=== PATIENT | female | born 1950 | race Caucasian/White ===

== ENCOUNTER 2017-05-10 11:06 | Observation (INO) | payer MEDICARE ==
[2017-05-10] MEDS ORDERED: NITROGLYCERIN OINT 1 INCH/GM PACKET TOPICAL STA (11:46)
[2017-05-10] MEDS ORDERED: ASPIRIN 81 MG PO STA (11:46)
--- NOTE | 2017-05-10 11:49 | ED ---
General Adult HPI - General Chief complaint: Chest Pain Stated complaint: CHEST PAIN Time Seen by Provider: 05/10/17 11:06 Source: EMS, RN notes reviewed Mode of arrival: EMS Limitations: no limitations - History of Present Illness Initial comments: This is a 66-year-old female who presents emergency Department complaining of chest pain at work for about 10 minutes and then she became significantly short of breath. Patient states she also was dizzy when she had chest pain. Patient states it was a pressure or heaviness sensation. Patient states she is not diabetic does not smoke. Patient states she has high blood pressure high cholesterol. Patient states she has some distant family members who have heart disease. Patient states currently she is chest pain-free. Patient denies any recent fever chills or cough. Patient denies any near syncopal episode. Patient denies abdominal pain patient denies any nausea vomiting diarrhea per patient denies any diaphoresis. Patient denies any radiation of the pain. Patient denies any significant leg swelling or calf tenderness. - Related Data Home Medications Medication Instructions Recorded Confirmed Aspirin 81 mg PO HS 05/10/17 05/10/17 Biotin 5 mg PO DAILY 05/10/17 05/10/17 Cyanocobalamin (Vitamin B-12) 1,000 mcg PO DAILY 05/10/17 05/10/17 [Vitamin B-12] Levothyroxine Sodium [Synthroid] 25 mcg PO DAILY 05/10/17 05/10/17 Losartan [Cozaar] 25 mg PO BID 05/10/17 05/10/17 Multivitamins, Thera [Multivitamin 1 tab PO DAILY 05/10/17 05/10/17 (formulary)] [place]-3 Fatty Acids [[place]-3] 1,000 mg PO DAILY 05/10/17 05/10/17 Omeprazole [PriLOSEC] 20 mg PO DAILY 05/10/17 05/10/17 Simvastatin [Zocor] 20 mg PO HS 05/10/17 05/10/17 Allergies Allergy/AdvReac Type Severity Reaction Status Date / Time sulfasalazine Allergy Unknown Verified 05/10/17 11:28 [From Azulfidine] Review of Systems ROS Statement: Those systems with pertinent positive or pertinent negative responses have been documented in the HPI. ROS Other: All systems not noted in ROS Statement are negative. Past Medical History Past Medical History: Hyperlipidemia, Hypertension, Thyroid Disorder Additional Past Medical History / Comment(s): crohns History of Any Multi-Drug Resistant Organisms: None Reported Past Surgical History: Adenoidectomy, Appendectomy, Bowel Resection, Cholecystectomy, Hysterectomy, Tonsillectomy Past Psychological History: No Psychological Hx Reported Smoking Status: Never smoker Past Alcohol Use History: None Reported Past Drug Use History: None Reported General Exam - General Exam Comments Initial Comments: GENERAL: Patient is well-developed and well-nourished. Patient is nontoxic and well- hydrated and is in mild distress. ENT: Neck is soft and supple. No significant lymphadenopathy is noted. Oropharynx is clear. Moist mucous membranes. Neck has full range of motion without eliciting any pain. EYES: The sclera were anicteric and conjunctiva were pink and moist. Extraocular movements were intact and pupils were equal round and reactive to light. Eyelids were unremarkable. PULMONARY: Unlabored respirations. Good breath sounds bilaterally. No audible rales rhonchi or wheezing was noted. CARDIOVASCULAR: There is a regular rate and rhythm without any murmurs gallops or rubs. ABDOMEN: Soft and nontender with normal bowel sounds. No palpable organomegaly was noted. There is no palpable pulsatile mass. SKIN: Skin is clear with no lesions or rashes and otherwise unremarkable. NEUROLOGIC: Patient is alert and oriented x3. Cranial nerves II through XII are grossly intact. Motor and sensory are also intact. Normal speech, volume and content. Symmetrical smile. MUSCULOSKELETAL: Normal extremities with adequate strength and full range of motion. LYMPHATICS: No significant lymphadenopathy is noted PSYCHIATRIC: Normal psychiatric evaluation. Normal interpersonal interactions appears functionally intact in deals appropriately with others. No signs of depression. No signs of anxiety. Limitations: no limitations Course Vital Signs 05/10/17 05/10/17 11:10 11:32 Temperature 97.9 F Pulse Rate 78 Respiratory 16 18 Rate Blood Pressure 170/77 O2 Sat by Pulse 97 Oximetry Medical Decision Making - Medical Decision Making EKG shows normal sinus rhythm at 67 bpm AR interval is 140 QRS is 80 QT intervals 416 QTC is 439. Patient's EKG shows no ST segment elevation or depression or T wave abnormalities are noted. Chest x-ray shows no acute abnormality. Patient was chest pain-free throughout her emergency stay however because of her clinical picture and risk factors started the patient on heparin for unstable angina. I spoke with because he agreed to admit the patient admitted the patient wrote admitting orders. - Lab Data Result diagrams: 05/10/17 11:20 05/10/17 11:20 Lab Results 05/10/17 05/10/17 05/10/17 Range/Units 11:20 11:20 11:20 WBC 7.2 (3.8-10.6) k/uL RBC 5.05 (3.80-5.40) m/uL Hgb 14.3 (11.4-16.0) gm/dL Hct 42.1 (34.0-46.0) % MCV 83.4 (80.0-100.0) fL MCH 28.4 (25.0-35.0) pg MCHC 34.0 (31.0-37.0) g/dL RDW 13.1 (11.5-15.5) % Plt Count 220 (150-450) k/uL Neutrophils % 44 % Lymphocytes % 45 % Monocytes % 7 % Eosinophils % 2 % Basophils % 1 % Neutrophils # 3.2 (1.3-7.7) k/uL Lymphocytes # 3.2 (1.0-4.8) k/uL Monocytes # 0.5 (0-1.0) k/uL Eosinophils # 0.2 (0-0.7) k/uL Basophils # 0.0 (0-0.2) k/uL PT (9.0-12.0) sec INR (<1.2) APTT (22.0-30.0) sec Sodium 143 (137-145) mmol/L Potassium 4.4 (3.5-5.1) mmol/L Chloride 105 (98-107) mmol/L Carbon Dioxide 25 (22-30) mmol/L Anion Gap 13 mmol/L BUN 19 H (7-17) mg/dL Creatinine 0.78 (0.52-1.04) mg/dL Est GFR (CKD-EPI)AfAm >90 (>60 ml/min/1.73 sqM) Est GFR (CKD-EPI)NonAf 80 (>60 ml/min/1.73 sqM) Glucose 122 H (74-99) mg/dL Calcium 9.9 (8.4-10.2) mg/dL Magnesium 2.0 (1.6-2.3) mg/dL Total Bilirubin 0.4 (0.2-1.3) mg/dL AST 38 H (14-36) U/L ALT 59 H (9-52) U/L Alkaline Phosphatase 86 (38-126) U/L Total Creatine Kinase 110 (30-135) U/L CK-MB (CK-2) 1.9 (0.0-2.4) ng/mL CK-MB (CK-2) Rel Index 1.7 Troponin I <0.012 (0.000-0.034) ng/mL NT-Pro-B Natriuret Pep pg/mL Total Protein 7.1 (6.3-8.2) g/dL Albumin 4.3 (3.5-5.0) g/dL 05/10/17 05/10/17 Range/Units 11:20 11:20 WBC (3.8-10.6) k/uL RBC (3.80-5.40) m/uL Hgb (11.4-16.0) gm/dL Hct (34.0-46.0) % MCV (80.0-100.0) fL MCH (25.0-35.0) pg MCHC (31.0-37.0) g/dL RDW (11.5-15.5) % Plt Count (150-450) k/uL Neutrophils % % Lymphocytes % % Monocytes % % Eosinophils % % Basophils % % Neutrophils # (1.3-7.7) k/uL Lymphocytes # (1.0-4.8) k/uL Monocytes # (0-1.0) k/uL Eosinophils # (0-0.7) k/uL Basophils # (0-0.2) k/uL PT 9.7 (9.0-12.0) sec INR 1.0 (<1.2) APTT 22.1 (22.0-30.0) sec Sodium (137-145) mmol/L Potassium (3.5-5.1) mmol/L Chloride (98-107) mmol/L Carbon Dioxide (22-30) mmol/L Anion Gap mmol/L BUN (7-17) mg/dL Creatinine (0.52-1.04) mg/dL Est GFR (CKD-EPI)AfAm (>60 ml/min/1.73 sqM) Est GFR (CKD-EPI)NonAf (>60 ml/min/1.73 sqM) Glucose (74-99) mg/dL Calcium (8.4-10.2) mg/dL Magnesium (1.6-2.3) mg/dL Total Bilirubin (0.2-1.3) mg/dL AST (14-36) U/L ALT (9-52) U/L Alkaline Phosphatase (38-126) U/L Total Creatine Kinase (30-135) U/L CK-MB (CK-2) (0.0-2.4) ng/mL CK-MB (CK-2) Rel Index Troponin I (0.000-0.034) ng/mL NT-Pro-B Natriuret Pep 42 pg/mL Total Protein (6.3-8.2) g/dL Albumin (3.5-5.0) g/dL Critical Care Time Critical Care Time: Yes Total Critical Care Time: 35 Disposition Clinical Impression: Unstable angina pectoris Disposition: ADMITTED IP TO THIS HOSP Referrals: Vivek Simpson MD [Primary Care Provider] - 1-2 days Time of Disposition: 13:21
[2017-05-10 12:02] LABS: Basophils % (A) 1 %; Eosinophils # (A) 0.2 k/uL (0-0.7); Eosinophils % (A) 2 %; HCT 42.1 % (34.0-46.0); HGB 14.3 gm/dL (11.4-16.0); Lymphocytes # (A) 3.2 k/uL (1.0-4.8); Lymphocytes % (A) 45 %; MCH 28.4 pg (25.0-35.0); MCV 83.4 fL (80.0-100.0); Mean Platelet Volume 7.8; Monocytes # (A) 0.5 k/uL (0-1.0); Monocytes % (A) 7 %; Neutrophils # (A) 3.2 k/uL (1.3-7.7); Neutrophils % (A) 44 %; Platelet Count 220 k/uL (150-450); RBC 5.05 m/uL (3.80-5.40); RDW 13.1 % (11.5-15.5); WBC 7.2 k/uL (3.8-10.6)
[2017-05-10 12:09] LABS: Prothrombin Time 9.7 sec (9.0-12.0)
--- NOTE | 2017-05-10 12:11 | XR ---
EXAMINATION TYPE: XR chest 2V DATE OF EXAM: 05/10/2017 COMPARISON: NONE HISTORY: Shortness of breath TECHNIQUE: Frontal and lateral views of the chest are obtained. FINDINGS: Scattered senescent parenchymal changes noted. Hyperinflation compatible with COPD. No evidence for infiltrate. No evidence for atelectasis. Heart size is stable. Mediastinal structures are stable and grossly unremarkable. No evidence for hilar prominence. Degenerative changes dorsal spine. IMPRESSION: 1. No evidence for acute pulmonary disease.
[2017-05-10 12:12] LABS: ALT 59 U/L (9-52); AST 38 U/L (14-36); Albumin 4.3 g/dL (3.5-5.0); Alkaline Phosphatase 86 U/L (38-126); Anion Gap 13 mmol/L; Blood Urea Nitrogen 19 mg/dL (7-17); Calcium 9.9 mg/dL (8.4-10.2); Carbon Dioxide 25 mmol/L (22-30); Chloride 105 mmol/L (98-107); Glucose 122 mg/dL (74-99); Potassium 4.4 mmol/L (3.5-5.1); Sodium 143 mmol/L (137-145); Total Bilirubin 0.4 mg/dL (0.2-1.3); Total Protein 7.1 g/dL (6.3-8.2)
[2017-05-10 12:18] LABS: Partial Thromboplastin Time 22.1 sec (22.0-30.0)
[2017-05-10 12:28] LABS: Creatine Kinase 110 U/L (30-135)
[2017-05-10 12:40] LABS: Creatine Kinase MB 1.9 ng/mL (0.0-2.4); Troponin I <0.012 ng/mL (0.000-0.034)
[2017-05-10] MEDS ORDERED: NITROGLYCERIN SL TABS 0.4 MG TAB SUBLINGUAL PRN (13:21)
[2017-05-10] MEDS ORDERED: HEPARIN SODIUM,PORCINE 5,000 UNIT/ML 1 ML VIAL IV ONE (13:23)
[2017-05-10] MEDS ORDERED: HEPARIN SOD,PORK IN 0.45% NACL 25,000 UNIT in 0.45% NACL 1 500ML.BAG IV SCH (13:30)
--- NOTE | 2017-05-10 14:56 | P.HPIM ---
History of Present Illness 66-year-old pleasant female came in with comments of chest pressure-like sensation in the retrosternal area nonradiating lasted for 10 minutes, nonexertional pressure-like sensation about 3/10 in severity associated lightheadedness denied any significant diaphoresis, nonpleuritic in nature not associated with food some associated shortness of breath. Patient's EKG is essentially within normal lives troponins are negative patient had a stress test and he is ago which was essentially negative patient does have history of hyperlipidemia and hypertension denied any significant family history of coronary artery disease in immediate family members. Review of Systems REVIEW OF SYSTEMS: CONSTITUTIONAL: No fever, no malaise, no fatigue. HEENT: No recent visual problems or hearing problems. Denied any sore throat. CARDIOVASCULAR: No orthopnea, PND, no palpitations, no syncope. PULMONARY: No shortness of breath, no cough, no hemoptysis. GASTROINTESTINAL: No diarrhea, no nausea, no vomiting, no abdominal pain. Normoactive bowel sounds. NEUROLOGICAL: No headaches, no weakness, no numbness. HEMATOLOGICAL: Denies any bleeding or petechiae. GENITOURINARY: Denies any burning micturition, frequency, or urgency. MUSCULOSKELETAL/RHEUMATOLOGICAL: Denies any joint pain, swelling, or any muscle pain. ENDOCRINE: Denies any polyuria or polydipsia. The rest of the 14-point review of systems is negative. Past Medical History Past Medical History: GERD/Reflux, Hyperlipidemia, Hypertension, Thyroid Disorder Additional Past Medical History / Comment(s): Hypothyroid, crohns History of Any Multi-Drug Resistant Organisms: None Reported Past Surgical History: Adenoidectomy, Appendectomy, Bowel Resection, Cholecystectomy, Hysterectomy, Orthopedic Surgery, Tonsillectomy Additional Past Surgical History / Comment(s): Pt has had 3 bowel resections d/ t chron's, 3 right and 2 left foot surgeries for dubose neuromas/toe straightening, L thumb basal joint sx, bilateral carpal tunnel surgery. Past Anesthesia/Blood Transfusion Reactions: Postoperative Nausea & Vomiting ( PONV) Additional Past Anesthesia/Blood Transfusion Reaction / Comment(s): Pt has received blood in past without reaction. Past Psychological History: No Psychological Hx Reported Additional Psychological History / Comment(s): Pt resides with her spouse os 28 yrs. She is independent. Smoking Status: Former smoker Past Alcohol Use History: None Reported Additional Past Alcohol Use History / Comment(s): Pt started smoking in 1967 and quit in 1979 Past Drug Use History: None Reported - Past Family History Mother Family Medical History: Hypertension, Liver Disease Additional Family Medical History / Comment(s): Mother was healthy until later in life. She had hepatitis C after blood transfusion. Father Family Medical History: Diabetes Mellitus Additional Family Medical History / Comment(s): Father had heart problems after he had a "heart infection." He also had diabetes. Medications and Allergies Home Medications Medication Instructions Recorded Confirmed Type Aspirin 81 mg PO HS 05/10/17 05/10/17 History Biotin 5 mg PO DAILY 05/10/17 05/10/17 History Cyanocobalamin (Vitamin B-12) 1,000 mcg PO DAILY 05/10/17 05/10/17 History [Vitamin B-12] Levothyroxine Sodium [Synthroid] 25 mcg PO DAILY 05/10/17 05/10/17 History Losartan [Cozaar] 25 mg PO BID 05/10/17 05/10/17 History Multivitamins, Thera [Multivitamin 1 tab PO DAILY 05/10/17 05/10/17 History (formulary)] [place]-3 Fatty Acids [[place]-3] 1,000 mg PO DAILY 05/10/17 05/10/17 History Omeprazole [PriLOSEC] 20 mg PO DAILY 05/10/17 05/10/17 History Simvastatin [Zocor] 20 mg PO HS 05/10/17 05/10/17 History Allergies Allergy/AdvReac Type Severity Reaction Status Date / Time sulfasalazine Allergy Unknown Verified 05/10/17 11:28 [From Azulfidine] Physical Exam Vitals: Vital Signs Temp Pulse Pulse Resp BP BP Pulse Ox 05/10/17 14:50 97.9 F 69 18 166/88 96 05/10/17 13:36 64 16 153/81 96 05/10/17 11:32 18 05/10/17 11:10 97.9 F 78 16 170/77 97 Intake and Output 05/09/17 05/10/17 05/10/17 22:59 06:59 14:59 Other: Weight 105.6 kg PHYSICAL EXAMINATION: GENERAL: The patient is alert and oriented x3, not in any acute distress. Well developed, well nourished. HEENT: Pupils are round and equally reacting to light. EOMI. No scleral icterus. No conjunctival pallor. Normocephalic, atraumatic. No pharyngeal erythema. No thyromegaly. CARDIOVASCULAR: S1 and S2 present. No murmurs, rubs, or gallops. PULMONARY: Chest is clear to auscultation, no wheezing or crackles. ABDOMEN: Soft, nontender, nondistended, normoactive bowel sounds. No palpable organomegaly. MUSCULOSKELETAL: No joint swelling or deformity. EXTREMITIES: No cyanosis, clubbing, or pedal edema. NEUROLOGICAL: Gross neurological examination did not reveal any focal deficits. SKIN: No rashes. Results CBC & Chem 7: 05/10/17 11:20 05/10/17 11:20 Labs: Abnormal Lab Results - Last 24 Hours (Table) 05/10/17 Range/Units 11:20 BUN 19 H (7-17) mg/dL Glucose 122 H (74-99) mg/dL AST 38 H (14-36) U/L ALT 59 H (9-52) U/L Thrombosis Risk Factor Assmnt - Choose All That Apply Any of the Below Risk Factors Present?: Yes Each Factor Represents 1 point: Obesity (BMI >25) Other Risk Factors: Yes Each Risk Factor Represents 2 Points: Age 61-74 years Other congenital or acquired thrombophilia - If yes, enter type in comment: No Thrombosis Risk Factor Assessment Total Risk Factor Score: 3 Thrombosis Risk Factor Assessment Level: Moderate Risk Assessment and Plan Plan: -Chest pain: We'll rule out acute coronary syndromes with a 2 more sets of troponins and EKGs, considering risk factors and nature of chest pain patient may end up needing stress test. Patient will be continued on IV heparin because of the possibility of unstable angina -Hypertension -Hyperlipidemia -Hypothyroidism For above-mentioned chronic medical problems patient will be resumed and continued on appropriate home medications.
[2017-05-10 18:00] LABS: Creatine Kinase 147 U/L (30-135)
[2017-05-10 18:12] LABS: Creatine Kinase MB 1.6 ng/mL (0.0-2.4); Troponin I <0.012 ng/mL (0.000-0.034)
[2017-05-10] MEDS ORDERED: HEPARIN SODIUM,PORCINE 5,000 UNIT/ML 1 ML VIAL IV PRN (19:49)
[2017-05-10] MEDS: NITROGLYCERIN OINT 1 INCH/GM PACKET TOPICAL SCH ×2 (20:09→20:37)
[2017-05-10] MEDS: LOSARTAN 25 MG TAB PO SCH (20:12)
[2017-05-10] MEDS ORDERED: ATORVASTATIN 10 MG TAB PO SCH (21:00)
[2017-05-10 23:32] VITALS: RESP 18
[2017-05-11 02:15] LABS: Cholesterol 120 mg/dL (<200); HDL Cholesterol 42 mg/dL (40-60); LDL Cholesterol,Calculated 44 mg/dL (0-99); Triglycerides 169 mg/dL (<150)
[2017-05-11 02:31] LABS: Creatine Kinase 183 U/L (30-135)
[2017-05-11 02:45] LABS: Creatine Kinase MB 1.4 ng/mL (0.0-2.4); Troponin I <0.012 ng/mL (0.000-0.034)
[2017-05-11] MEDS ORDERED: LEVOTHYROXINE 25 MCG TAB PO SCH (06:30)
[2017-05-11] MEDS ORDERED: PANTOPRAZOLE 40 MG TABLET PO SCH (07:30)
[2017-05-11] MEDS ORDERED: ASPIRIN 325 MG TAB PO SCH (09:00)
--- NOTE | 2017-05-11 10:53 | ECHOF ---
Referral Reason:chest pain MEASUREMENTS -------- HEIGHT: 160.0 cm WEIGHT: 105.2 kg BP: 124/75 IVSd: 1.2 cm (0.6 - 1.1) LVIDd: 3.3 cm (3.9 - 5.3) LVPWd: 1.2 cm (0.6 - 1.1) IVSs: 1.7 cm LVIDs: 2.0 cm LVPWs: 1.6 cm LAESV Index (A-L): 21.95 ml/m Ao Diam: 3.1 cm (2.0 - 3.7) AV Cusp: 1.7 cm (1.5 - 2.6) LA Diam: 3.2 cm (2.7 - 3.8) MV EXCURSION: 13.883 mm (> 18.000) MV EF SLOPE: 67 mm/s (70 - 150) EPSS: 0.6 cm MV E Merrill: 0.72 m/s MV DecT: 203 ms MV A Merrill: 0.53 m/s MV E/A Ratio: 1.34 AR PHT: 346 ms RAP: 5.00 mmHg RVSP: 19.40 mmHg FINDINGS -------- Sinus rhythm. This was a technically good study. The left ventricular size is normal. There is borderline concentric left ventricular hypertrophy. Overall left ventricular systolic function is normal with, an EF between 55 - 60 %. The right ventricle is normal in size and function. The left atrium is normal in size. The right atrium is normal in size. The aortic valve is trileaflet, and appears structurally normal. No aortic stenosis or regurgitation. The mitral valve leaflets are mildly thickened. Mild mitral regurgitation is present. Trace tricuspid regurgitation present. The right ventricular systolic pressure, as measured by Dopp ler, is 19.40mmHg. Pulmonic valve appears structurally normal. The aortic root size is normal. The pericardium is normal. CONCLUSIONS -------- 1. Sinus rhythm. 2. This was a technically good study. 3. The left ventricular size is normal. 4. There is borderline concentric left ventricular hypertrophy. 5. Overall left ventricular systolic function is normal with, an EF between 55 - 60 %. 6. The right ventricle is normal in size and function. 7. The left atrium is normal in size. 8. The right atrium is normal in size. 9. The aortic valve is trileaflet, and appears structurally normal. No aortic stenosis or regurgitati on. 10. The mitral valve leaflets are mildly thickened. 11. Mild mitral regurgitation is present. 12. Trace tricuspid regurgitation present. 13. The right ventricular systolic pressure, as measured by Doppler, is 19.40mmHg. 14. Pulmonic valve appears structurally normal. 15. The aortic root size is normal. 16. The pericardium is normal. POWERHOUSE ELECTRICIAN: Kinjal Benitez RDCS
[2017-05-11] MEDS: LOSARTAN 25 MG TAB PO SCH (11:53)
[2017-05-11 12:03] VITALS: BP 129/75; PULSE 78; TEMP 98.5
[2017-05-11] MEDS: NITROGLYCERIN OINT 1 INCH/GM PACKET TOPICAL SCH (12:29)
--- NOTE | 2017-05-11 12:35 | ECHOS ---
STRESS ECHOCARDIOGRAM DATE OF SERVICE: 05/11/2017 INDICATIONS: Chest pain. MEDICATIONS: BASELINE HEART RATE: 73 BASELINE BLOOD PRESSURE: 142/53 MAXIMUM HEART RATE: 131 MAXIMUM BLOOD PRESSURE: 200/60 85% MPHR: 132 100% MPHR: 155 METS: 8.1 MAXIMUM STAGE REACHED: III TOTAL EXERCISE TIME: 6 minutes 45 seconds CLINICAL INFORMATION: Baseline EKG revealed normal sinus rhythm with poor R-wave progression of precordial leads. The patient walked on a standard Rm protocol for 6 minutes 45 seconds, achieved a maximum heart rate of 131 beats per minute which is almost 85% of predicted maximal. She developed fatigue and shortness of breath but did not have any angina or arrhythmia. EKG did not reveal any ST-segment changes to indicate ischemia. By EKG criteria, even though there were minor ST changes to begin with, this is considered a negative stress test. Fair exercise capacity was noted and patient did not have any angina or arrhythmia. Peak blood pressure was 200/60. Baseline echo images revealed normal wall motion and wall thickening of all segments. At peak exercise, there was good augmentation of left ventricular wall motion and wall thickening of all segments suggesting that there is no evidence of any stress-induced ischemia on this study. FINAL IMPRESSION: 1. Fair exercise capacity with a negative stress test by EKG criteria. 2. Normal stress echocardiogram. MMODL / IJN: [id number] /
--- NOTE | 2017-05-11 14:57 | P.DS ---
Providers Date of admission: 05/10/17 13:21 Attending physician: Kay Mcnally Consults: 05/10/17 13:21 Consult Physician Urgent Consulting Provider: [facility] Consult Reason/Comments: Unstable angina Do you want consulting provider notified?: Yes Primary care physician: Vivek Simpson MD Hospital Course: Patient was admitted for chest pain rule out acute coronary syndromes, patient had a stress test which was negative and patient is clinically doing well and is being discharged please refer to my dictation of H&P for further details of rest of her medical problems hospitalization course Plan - Discharge Summary Discharge Rx Participant: No New Discharge Prescriptions: No Action Cyanocobalamin (Vitamin B-12) [Vitamin B-12] 1,000 mcg PO DAILY Multivitamins, Thera [Multivitamin (formulary)] 1 tab PO DAILY Biotin 5 mg PO DAILY Aspirin 81 mg PO HS Omeprazole [PriLOSEC] 20 mg PO DAILY Losartan [Cozaar] 25 mg PO BID Levothyroxine Sodium [Synthroid] 25 mcg PO DAILY Simvastatin [Zocor] 20 mg PO HS [place]-3 Fatty Acids [[place]-3] 1,000 mg PO DAILY Discharge Medication List Aspirin 81 mg PO HS 05/10/17 [History] Biotin 5 mg PO DAILY 05/10/17 [History] Cyanocobalamin (Vitamin B-12) [Vitamin B-12] 1,000 mcg PO DAILY 05/10/17 [ History] Levothyroxine Sodium [Synthroid] 25 mcg PO DAILY 05/10/17 [History] Losartan [Cozaar] 25 mg PO BID 05/10/17 [History] Multivitamins, Thera [Multivitamin (formulary)] 1 tab PO DAILY 05/10/17 [History ] [place]-3 Fatty Acids [[place]-3] 1,000 mg PO DAILY 05/10/17 [History] Omeprazole [PriLOSEC] 20 mg PO DAILY 05/10/17 [History] Simvastatin [Zocor] 20 mg PO HS 05/10/17 [History] Follow up Appointment(s)/Referral(s): Marlon Rivera MD [STAFF PHYSICIAN] - As Needed Vivek Simpson MD [Primary Care Provider] - 1-2 days Patient Instructions/Handouts: Chest Pain (GEN) Discharge Disposition: HOME SELF-CARE
--- NOTE | 2017-05-11 15:16 | CONS ---
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 Pain seems very atypical. The description of the pain was such that it was a pressure that lasted very briefly, then she had a sharp pain. She felt concerned, and she also has her daughter who works in the office. Because this persisted on and off for nearly 10 minutes, she came into the hospital. After arrival, she has been pain-free. She is resting comfortably without symptoms. She does have a history of hypertension, hypothyroidism and hyperlipidemia. She is resting comfortably without symptoms at the time of my evaluation. PAST MEDICAL HISTORY: 1. Hypertension. 2. Hyperlipidemia. 3. Hypothyroidism. MEDICATIONS: 1. Simvastatin. 2. Omeprazole. 3. Losartan. 4. Aspirin. 5. Vitamin supplements. 6. Synthroid 25 mcg daily. ALLERGIES: SULFASALAZINE. PHYSICAL EXAMINATION: Blood pressure is 128/70, pulse rate 70 per minute, regular. HEENT: Unremarkable. Fundus was not examined by me. NECK: Supple. No JVD. I do not hear a carotid bruit. There is no thyromegaly. Heart exam reveals S1, S2 heard normally in all areas without a rub, murmur or gallop. Lungs are clear. ABDOMEN: Soft, nontender. Lower extremities reveal normal pulses. No edema. Central nervous system is normal. EKG revealed sinus mechanism without significant ST-T changes. Laboratory data revealed unremarkable troponins. IMPRESSION: 1. Atypical chest pain. 2. Hypertension. 3. Hyperlipidemia. 4. Hypothyroidism. RECOMMENDATIONS: Patient's pain seems atypical, but she does have a risk factor profile. I am recommending an echocardiogram and a stress echo. She also had during her monitoring a 5-beat run of PVC at about 90 beats per minute. This is probably not significant. I will perform a stress echo, and if this is normal she can be discharged. With regard to the ventricular ectopy, no intervention is necessary at this time. I discussed these findings with the patient. She will have a stress echo today, and if this is normal she can be discharged. Thank you very much for the consult. MMODL / IJN: [id number] /
== END 2017-05-11 13:45 | disposition home or self-care (01) ==
LOC: EC 11:06 → 3OBS 13:21
PROVIDERS: ADMIT Internal Medicine; ATTEND Internal Medicine
DX: R07.89 Other chest pain (principal); I10 Essential (primary) hypertension; E78.5 Hyperlipidemia, unspecified; E03.9 Hypothyroidism, unspecified; E66.9 Obesity, unspecified; Z68.41 Body mass index [BMI] 40.0-44.9, adult; Z79.82 Long term (current) use of aspirin; Z79.899 Other long term (current) drug therapy; Z88.2 Allergy status to sulfonamides; Z90.49 Acquired absence of other specified parts of digestive tract; Z87.19 Personal history of other diseases of the digestive system; Z87.891 Personal history of nicotine dependence; Z82.49 Family history of ischemic heart disease and other diseases of the circulatory system; Z83.79 Family history of other diseases of the digestive system; Z83.3 Family history of diabetes mellitus
CPT/HCPCS: 99291 ×2; 96365 ×2; 96376 ×3; 96366 ×2; 36415; 93005; 93017; 93306; 93350; 83880; 80061; 80053; 82550 ×2; 82553 ×2; 83735; 84484 ×2; 85025; 85610; 85730 ×2; 71046; G0378 ×2; J1644 ×2

== ENCOUNTER → 2017-11-16 | Day surgery (SDC) | payer MEDICARE ==
[2017-11-14 08:16] VITALS: BMI 40.7
[2017-11-16 12:42] VITALS: BP 127/77; PULSE 63; RESP 16; TEMP 98.5
== END | disposition home or self-care (01) ==
LOC: ORWHC2ENDO 11:49
PROVIDERS: ATTEND Internal Medicine Gastroenterology
DX: K21.9 Gastro-esophageal reflux disease without esophagitis (principal)
CPT/HCPCS: 91010

== ENCOUNTER → 2019-06-16 | Outpatient (CLI) | payer MEDICARE ==
[2019-06-16 10:30] LABS: Anisocytosis Slight; Appearance,Urine Clear (Clear); Basophils % (A) 0 %; Bilirubin,Urine Negative (Negative); Blood,Urine Negative (Negative); Color,Urine Yellow; Eosinophils # (A) 0.1 k/uL (0-0.7); Eosinophils % (A) 2 %; Glucose,Urine (UA) Negative (Negative); HCT 42.5 % (34.0-46.0); HGB 13.8 gm/dL (11.4-16.0); Ketones,Urine Negative (Negative); Leukocyte Esterase,Urine Negative (Negative); Lymphocytes # (A) 3.2 k/uL (1.0-4.8); Lymphocytes % (A) 51 %; MCH 25.8 pg (25.0-35.0); MCHC 32.6 g/dL (31.0-37.0); MCV 79.2 fL (80.0-100.0); Mean Platelet Volume 9.1; Microcytosis Slight; Monocytes # (A) 0.3 k/uL (0-1.0); Monocytes % (A) 5 %; Neutrophils # (A) 2.6 k/uL (1.3-7.7); Neutrophils % (A) 41 %; Nitrite,Urine Negative (Negative); PH, Urine 5.5 (5.0-8.0); Platelet Count 191 k/uL (150-450); Protein,Urine Negative (Negative); RBC 5.37 m/uL (3.80-5.40); RDW 17.1 % (11.5-15.5); Specific Gravity,Urine 1.015 (1.001-1.035); Urobilinogen,Urine <2.0 mg/dL (<2.0); WBC 6.3 k/uL (3.8-10.6)
[2019-06-16 10:41] LABS: Partial Thromboplastin Time 23.7 sec (22.0-30.0); Prothrombin Time 10.1 sec (9.0-12.0)
[2019-06-16 15:52] LABS: African American GFR (CKD) 76.7 (60.0-200.0); Albumin 4.5 g/dL (3.80-4.90); Albumin/Globulin Ratio 2.05 (1.60-3.17); Anion Gap 11.4 mmol/L (4.00-12.00); BUN/Creat Ratio 24.44 Ratio (12.00-20.00); Calcium 9.6 mg/dL (8.7-10.3); Carbon Dioxide 24.6 mmol/L (21.6-31.8); Globulin 2.2 g/dL (1.6-3.3); Non-African American GFR(CKD) 66.2 (60.0-200.0); Phosphorus 4.4 mg/dL (2.4-5.1); Potassium 4.7 mmol/L (3.5-5.5); Total Bilirubin 0.6 mg/dL (0.3-1.2); Total Protein 6.7 g/dL (6.2-8.2); Uric Acid 4.4 mg/dL (2.9-7.7)
[2019-06-16 15:53] LABS: Bilirubin, Conjugated 0.2 mg/dL (0.20-0.40); Bilirubin,Unconjugated 0.4 mg/dL; Chol/HDL Ratio 2.77; LDL Cholesterol,Calculated 60.2 mg/dL (0.0-131.0); VLDL Calculation 17.8 mg/dL (5.00-40.00)
[2019-06-16 15:55] LABS: Urine Creatinine 81.2 mg/dL
[2019-06-16 16:10] LABS: EBV-EA (IgG) <0.2 AI; EBV-EBNA(IgG) >8.0 AI; EBV-VCA (IgG) >8.0 AI; EBV-VCA (IgM) <0.2 AI
[2019-06-16 17:08] LABS: HIV 2 AB Non-Reactive (Non-Reactive); HIV AB P24 Non-Reactive (Non-Reactive); HIV P24 AG Non-Reactive (Non-Reactive); Hepatitis B Surface Antibody Reactive (Non-Reactive); Hepatitis B Surface Antigen Non-Reactive (Non-Reactive); Hepatitis C IgG Antibody Non-Reactive (Non-Reactive)
[2019-06-16 18:19] LABS: Hemoglobin A1C 5.6 % (4.0-6.0)
== END | disposition home or self-care (01) ==
LOC: LABWHC1 09:43
PROVIDERS: ATTEND Internal Medicine Nephrology
DX: Z00.5 Encounter for examination of potential donor of organ and tissue (principal); Z52.9 Donor of unspecified organ or tissue
CPT/HCPCS: 36415; 80053; 80061; 81003; 82043; 82248; 82570; 82610; 83036; 84100; 84550; 85025; 85610; 85730; 86644; 86645; 86663; 86664; 86665; 86704; 86706; 86780; 86803; 87340; 87390

== ENCOUNTER → 2019-06-23 | Outpatient (CLI) | payer MEDICARE ==
[2019-06-23 16:55] LABS: African American GFR (CKD) 67.5 (60.0-200.0); Non-African American GFR(CKD) 58.2 (60.0-200.0)
== END | disposition home or self-care (01) ==
LOC: LABWHC1 08:20
PROVIDERS: ATTEND Internal Medicine Nephrology
DX: Z52.9 Donor of unspecified organ or tissue (principal)
CPT/HCPCS: 36415; 82565; 82610

== ENCOUNTER 2022-12-05 18:17 | Emergency (ER) | payer MEDICARE ==
[2022-12-05 18:24] VITALS: BP 153/78; PULSE 71; RESP 20; TEMP 98.2
[2022-12-05 19:08] LABS: INR 0.9 (<1.2); Partial Thromboplastin Time 23.1 sec (22.0-30.0); Prothrombin Time 10.4 sec (10.0-12.5)
[2022-12-05 19:10] LABS: Basophils % (A) 0 %; Eosinophils # (A) 0.1 k/uL (0-0.7); Eosinophils % (A) 1 %; HCT 45.7 % (34.0-46.0); HGB 15.3 gm/dL (11.4-16.0); Lymphocytes # (A) 4.5 k/uL (1.0-4.8); Lymphocytes % (A) 34 %; MCH 30.4 pg (25.0-35.0); MCHC 33.5 g/dL (31.0-37.0); MCV 90.8 fL (80.0-100.0); Mean Platelet Volume 8.1; Monocytes # (A) 0.7 k/uL (0-1.0); Monocytes % (A) 5 %; Neutrophils # (A) 7.8 k/uL (1.3-7.7); Neutrophils % (A) 59 %; Platelet Count 221 k/uL (150-450); RBC 5.03 m/uL (3.80-5.40); RDW 13.4 % (11.5-15.5); WBC 13.4 k/uL (3.8-10.6)
--- NOTE | 2022-12-05 19:49 | XR ---
EXAMINATION TYPE: XR chest 2V DATE OF EXAM: 12/05/2022 COMPARISON: 05/10/2017 INDICATION: Chest pain short of breath TECHNIQUE: Frontal and lateral views of the chest are obtained. FINDINGS: The heart size is normal. The pulmonary vasculature is normal. The lungs are clear. IMPRESSION: 1. No acute pulmonary process.
[2022-12-05 19:57] LABS: ALT 120 U/L (4-34); AST 62 U/L (14-36); African American GFR (CKD) 70 (>60 ml/min/1.73 sqM); Albumin 4.2 g/dL (3.5-5.0); Alkaline Phosphatase 93 U/L (38-126); Anion Gap 10 mmol/L; Blood Urea Nitrogen 27 mg/dL (7-17); Calcium 9.4 mg/dL (8.4-10.2); Carbon Dioxide 24 mmol/L (22-30); Chloride 104 mmol/L (98-107); Glucose 121 mg/dL (74-99); Magnesium 2.1 mg/dL (1.6-2.3); Non-African American GFR(CKD) 61 (>60 ml/min/1.73 sqM); Potassium 4.4 mmol/L (3.5-5.1); Sodium 138 mmol/L (137-145); Total Bilirubin 0.5 mg/dL (0.2-1.3); Total Protein 6.9 g/dL (6.3-8.2)
== END 2022-12-05 20:37 | disposition left against medical advice (07) ==
LOC: EC 18:17
DX: R07.9 Chest pain, unspecified (principal); Z53.21 Procedure and treatment not carried out due to patient leaving prior to being seen by health care provider
CPT/HCPCS: 36415; 71046; 80053; 83735; 84484; 85025; 85610; 85730; 93005; 99499

== ENCOUNTER → 2023-09-11 | Outpatient (CLI) | payer MEDICARE ==
--- NOTE | 2023-09-12 10:31 | BD ---
EXAMINATION TYPE: Axial Bone Density DATE OF EXAM: 09/11/2023 CLINICAL HISTORY: 72 years old Female. ICD-10 CODE: Z78.0 ASYMPTOMATIC MENOPAUSAL STATE Height: 61.5 in Weight: 242 lbs FRAX RISK QUESTIONS: History of Fracture in Adulthood: rt ankle age 56 Secondary Osteoporosis: 3. Menopause before 45: total hysterectomy age 41 4. Malnutrition: crohns disease 5. Chronic liver disease: fatty liver MEDICATIONS: Thyroid Medications: yes Which medication: Levothyroxine How Lon+ years EXAM MEASUREMENTS: Bone mineral densitometry was performed using the [employer] System. Bone mineral density as measured about the Lumbar spine is: ----- L1-L4(G/cm2): 1.320 T Score Values are as follows: ----- L1: 0.7 ----- L2: 0.7 ----- L3: 1.8 ----- L4: 1.2 ----- L1-L4: 1.2 Z Score Values are as follows: ----- L1: 1.2 ----- L2: 1.2 ----- L3: 2.3 ----- L4: 1.7 ----- L1-L4: 1.7 Bone mineral density baseline Bone mineral density about the R hip (g/cm2): 0.917 Bone mineral density about the L hip (g/cm2): 0.937 T Score values are as follows: -----R Neck: -0.9 -----L Neck: -1.6 -----R Total: -0.7 -----L Total: -0.6 Z Score values are as follows: -----R Neck: 0.1 -----L Neck: -0.6 -----R Total: 0.0 -----L Total: Bone mineral density baseline FRAX%s: The graph provided illustrates a 14.4% chance for a major osteoporotic fx and a 2.1% chance f or the hips probability for fx in 10 years time. IMPRESSION: Normal (Values between +1 and -1 indicate normal bone mass). Consider repeating this study in 5 year s or sooner if there is some new clinical indication. NOTE: T-SCORE=SD OF THE YOUNG ADULT MEAN.
--- NOTE | 2023-10-16 12:36 | MM ---
Reason for Exam: Screening (asymptomatic). Last mammogram was performed 2 year(s) and 3 month(s) ago. Patient History: Menarche at age 13. First Full-Term at age 26. Left ovary removed at age 41. Right ovary removed at age 41. Hysterectomy at age 41. Patient has history of breast feeding. Patient used Estrogen for 5 years. Risk Values: Whitney 5 year model risk: 1.9%. NCI Lifetime model risk: 5.4%. Prior Study Comparison: 05/10/2020 Bilateral Screening Mammogram, [facility]. 05/27/2021 Bilateral Screening Mammogram, [facility]. Tissue Density: There are scattered areas of fibroglandular density. Findings: Analyzed By CAD. Chronic low density nodularity on both sides. Asymmetric density lateral aspect of the right breast is unchanged. No significant change from prior exam. Overall Assessment: Benign, BI-RAD 2 Management: Screening Mammogram of both breasts in 1 year. 1. Screening Mammogram Bilateral in 1 Year . 2. Patient should continue monthly self-breast exams. A clinical breast exam by your physician is recommended on an annual basis. 3. This exam should not preclude additional follow-up of suspicious palpable abnormalities. Electronically signed and approved by: Ben Mane M.D. Radiologis
== END | disposition home or self-care (01) ==
LOC: RADMAMWWP 14:48
PROVIDERS: ATTEND Family Medicine
DX: Z12.31 Encounter for screening mammogram for malignant neoplasm of breast (principal); M85.852 Other specified disorders of bone density and structure, left thigh; R92.333 Mammographic heterogeneous density, bilateral breasts; Z78.0 Asymptomatic menopausal state
CPT/HCPCS: 77063; 77067; 77080

== ENCOUNTER → 2024-01-24 | Outpatient (CLI) | payer MEDICARE ==
--- NOTE | 2024-01-24 17:43 | XR ---
EXAMINATION TYPE: XR abdomen 1V DATE OF EXAM: 01/24/2024 1:02 PM COMPARISON: None CLINICAL INDICATION: Female, 73 years old with history of R10.9 ABD PN, , FINDINGS: Degenerative change lower lumbar spine. 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 Cholecystectomy clips. Moderate stool burden. Left-sided pelvi c phleboliths. No dilated small bowel. IMPRESSION: Moderate stool burden. Nonobstructive bowel gas pattern. [facility], , 01/24/2024 5:41 PM
== END | disposition home or self-care (01) ==
LOC: RADXRMAIN 12:39
PROVIDERS: ATTEND Internal Medicine Gastroenterology
DX: R19.5 Other fecal abnormalities (principal); M16.0 Bilateral primary osteoarthritis of hip
CPT/HCPCS: 74018

== ENCOUNTER → 2024-09-15 | Outpatient (CLI) | payer MEDICARE ==
--- NOTE | 2024-09-15 17:54 | MM ---
Reason for Exam: Screening (asymptomatic). Last screening mammogram was performed 12 month(s) ago. Patient History: Menarche at age 13. First Full-Term at age 26. Left ovary removed at age 41. Right ovary removed at age 41. Hysterectomy at age 41. Patient has history of breast feeding. Patient used Estrogen for 5 years. Risk Values: Whitney 5 year model risk: 2.0%. NCI Lifetime model risk: 5.1%. Prior Study Comparison: 05/10/2020 Bilateral Screening Mammogram, [facility] . 05/27/2021 Bilateral Screening Mammogram, [facility] . 09/11/2023 Bilateral MG 3D screening mammo w/cad, [facility]. Tissue Density: There are scattered areas of fibroglandular density. Findings: Analyzed By CAD. Chronic nodularity on the left. There is no suspicious group of microcalcifications or new suspicious mass in either breast. Overall Assessment: Benign, BI-RAD 2 Management: Screening Mammogram of both breasts in 1 year. . Patient should continue monthly self-breast exams. A clinical breast exam by your physician is recommended on an annual basis. This exam should not preclude additional follow-up of suspicious palpable abnormalities. Note on Whitney scores and lifetime risk: 1. A Whitney score greater than 3% is considered moderate risk. If this is the case, consider specialist referral to assess eligibility for a risk reducing agent. 2. If overall lifetime risk for the development of breast cancer is 20% or higher, the patient may qualify for future screening with alternating mammogram and breast MRI. [facility], , 09/15/2024 5:51 PM. Electronically signed and approved by: Lien Frederick M.D. Radiologist
== END | disposition home or self-care (01) ==
LOC: RADMAMWWP 09:58
PROVIDERS: ATTEND Family Medicine
DX: Z12.31 Encounter for screening mammogram for malignant neoplasm of breast (principal); R92.323 Mammographic fibroglandular density, bilateral breasts
CPT/HCPCS: 77063; 77067